=== PATIENT | male | born 1975 | race Caucasian/White ===

== ENCOUNTER 2017-01-17 16:26 | Emergency (ER) | payer MEDICAID ==
[2017-01-17 16:46] VITALS: BP 121/74
== END 2017-01-17 18:39 | disposition home or self-care (01) ==
LOC: ED 16:26
DX: J06.9 Acute upper respiratory infection, unspecified (principal); R11.10 Vomiting, unspecified; E11.9 Type 2 diabetes mellitus without complications; F17.200 Nicotine dependence, unspecified, uncomplicated; J45.909 Unspecified asthma, uncomplicated
CPT/HCPCS: J7510